=== PATIENT | male | born 1975 | race Caucasian/White ===

== ENCOUNTER 2023-11-26 11:10 | Emergency (ER) | payer MEDICAID ==
[~2023-11-26] VITALS: Ht 188 cm; Wt 87.3 kg
[2023-11-26 11:11] VITALS: BP 127/69; PULSE 76; RESP 16; O2SAT 100
[2023-11-26] MEDS ORDERED: GABA600T13 PO (11:17)
[2023-11-26 11:32] VITALS: TEMP 98.6
== END 2023-11-26 11:34 | disposition home or self-care (01) ==
LOC: ER 11:11
DX: R56.9 Unspecified convulsions (principal); Z76.0 Encounter for issue of repeat prescription
CPT/HCPCS: 99281